=== PATIENT | male | born 1950 | race Hispanic/Latino ===

== ENCOUNTER → 2019-04-30 | Outpatient (CLI) | payer MEDICARE ==
[~2019-04-30] MED LIST: ALLO100T PO; AMLO5TAB9 PO; ATEN100T PO; CHOL200074 PO; FOLI1TAB15 PO; FOLI1TAB85 PO; FURO40TA5 PO; GLIP10TA9 PO; IRON150C5 PO; LEVE250T2 PO; LOSA25TA41 PO; LOVA20TA3 PO; MULT-1289 PO; OXYB10TA4 PO; SITA50TA PO; TAMS0.4C32 PO; TYL3 PO; WARF5TAB8 PO
== END | disposition home or self-care (01) ==
LOC: SHCH 07:55
PROVIDERS: ATTEND Internal Medicine Cardiovascular Disease
DX: I11.9 Hypertensive heart disease without heart failure (principal); I35.8 Other nonrheumatic aortic valve disorders; I31.3 Pericardial effusion (noninflammatory)
CPT/HCPCS: 93306

== ENCOUNTER → 2020-05-26 | Outpatient (CLI) | payer MEDICARE | END | disposition home or self-care (01) | LOC: SHCH 10:00 | PROVIDERS: ATTEND Internal Medicine Cardiovascular Disease | DX: I87.2 Venous insufficiency (chronic) (peripheral) (principal); I73.9 Peripheral vascular disease, unspecified | CPT/HCPCS: 93925; 93970 ==